=== PATIENT | male | born 1995 | race Caucasian/White ===

== ENCOUNTER → 2021-08-14 | Outpatient (CLI) | payer OTHER | LOC: MRI 12:38 | DX: E23.7 Disorder of pituitary gland, unspecified (principal); E03.8 Other specified hypothyroidism; R61 Generalized hyperhidrosis; R53.82 Chronic fatigue, unspecified; R89.1 Abnormal level of hormones in specimens from other organs, systems and tissues; R86.1 Abnormal level of hormones in specimens from male genital organs | CPT/HCPCS: 36415; 70553; 82565; A9577 ==